=== PATIENT | female | born 1995 | race African-American/Black ===

== ENCOUNTER 2017-07-11 14:11 | Emergency (ER) | payer OTHER ==
[2017-07-11 14:29] VITALS: BP 139/83; PULSE 101; TEMP 98.2; BMI 26.9
[2017-07-11] MEDS ORDERED: ACETAMINOPHEN 325 MG TABLET (FP) ONE (14:56)
[2017-07-11] MEDS ORDERED: ACETAMINOPHEN 325 MG TABLET (FP) PO ONE (14:57)
--- NOTE | 2017-07-11 15:07 | PDOC ---
History of Present Illness - General Chief Complaint: Headache Stated Complaint: HEADACHE Time Seen by Provider: 07/11/17 14:45 History Source: Patient Exam Limitations: No Limitations - History of Present Illness Initial Comments: 07/11/17 15:03 The 21-year-old female who presents to the emergency department with 1 week of headaches, rhinorrhea, nasal congestion. She denies any fevers, sore throats, chest pain, shortness of breath, abdominal pain, nausea, vomiting, diarrhea, dysuria, vaginal discharge or bleeding. Patient is currently 26 weeks gestation. Has appointment with her surveillance manager this week for further evaluation. Past History - Past Medical History Allergies/Adverse Reactions: Allergies Allergy/AdvReac Type Severity Reaction Status Date / Time No Known Allergies Allergy Verified 07/11/17 14:29 Home Medications: Ambulatory Orders Cephalexin Monohydrate [Keflex -] 500 mg PO Q6H #40 capsule 07/11/17 Anemia: Yes (sickle cell trait) COPD: No - Immunization History Immunization Up to Date: (?) - Suicide/Smoking/Psychosocial Hx Smoking History: Never smoked Hx Alcohol Use: No Drug/Substance Use Hx: No Substance Use Type: None Review of Systems - Review of Systems Able to Perform ROS?: Yes Is the patient limited Slovak proficient: No Constitutional: No: Symptoms Reported HEENTM: Yes: See HPI Respiratory: No: Symptoms reported Cardiac (ROS): No: Symptoms Reported ABD/GI: No: Symptoms Reported : No: Symptoms Reported Musculoskeletal: No: Symptoms Reported Integumentary: No: Symptoms Reported Neurological: No: Symptoms reported Endocrine: No: Symptoms Reported Hematologic/Lymphatic: No: Symptoms Reported *Physical Exam - Vital Signs Last Vital Signs Temp Pulse Resp BP Pulse Ox 98.2 F 101 H 20 139/83 99 07/11/17 14:25 07/11/17 14:25 07/11/17 14:25 07/11/17 14:25 07/11/17 14:25 - Physical Exam General Appearance: Yes: Appropriately Dressed. No: Apparent Distress HEENT: positive: Normal ENT Inspection Neck: positive: Trachea midline, Supple Respiratory/Chest: positive: Lungs Clear, Normal Breath Sounds. negative: Respiratory Distress, Accessory Muscle Use Cardiovascular: positive: Regular Rhythm, Regular Rate. negative: Murmur Gastrointestinal/Abdominal: positive: Normal Bowel Sounds, Soft, Other (Fundus palpated 1 cm below umbilicus). negative: Tender Musculoskeletal: positive: Normal Inspection. negative: CVA Tenderness Extremity: positive: Normal Capillary Refill, Normal Inspection Integumentary: positive: Normal Color, Dry, Warm Neurologic: positive: Alert, Normal Response, Motor Strength 5/5 ED Treatment Course - Medications Given in the ED: ED Medications Discontinued Medications Generic Name Dose Route Start Last Admin Trade Name Marianne PRN Reason Stop Dose Admin Acetaminophen 650 mg 07/11/17 14:57 07/11/17 15:02 Tylenol - PO 07/11/17 14:58 650 mg ONCE ONE Administration Medical Decision Making - Medical Decision Making 07/11/17 15:06 A/P: 21-year-old female without significant past medical history is currently 26 weeks gestation with frontal headache and nasal congestion. TMs within normal limits. External auditory canal is clear without erythema or exudates Oropharynx clear without erythema or exudates. No sinus tenderness present Lungs clear to auscultation bilaterally. Cranial nerves II through XII grossly intact. I'll send unable for heart rate of 101. I'll give the patient 6 for 50 mg Tylenol orally now. Urinalysis and urine culture. Discharge home with follow-up with CHILD AND FAMILY THERAPIST later this week as previously scheduled. *DC/Admit/Observation/Transfer Diagnosis at time of Disposition: UTI (urinary tract infection) Qualifiers: Urinary tract infection type: acute cystitis Hematuria presence: without hematuria Qualified Code(s): N30.00 - Acute cystitis without hematuria - Discharge Dispostion Disposition: HOME Condition at time of disposition: Stable Admit: No - Prescriptions Prescriptions: Cephalexin Monohydrate [Keflex -] 500 mg PO Q6H #40 capsule - Referrals - Patient Instructions Printed Discharge Instructions: DI for Urinary Tract Infection (UTI) Additional Instructions: Take Keflex 500 mg 4 times a day until all the medication has been completed. Follow-up with your CHILD AND FAMILY THERAPIST as previously scheduled. Take Tylenol as needed for fever and/or pain. Patient drink plenty of fluids. Return to emergency department for fevers, chills, lower back pain or any other concerns. - Post Discharge Activity
[2017-07-11 15:19] LABS: URINE APPEARANCE CLOUDY; URINE BILIRUBIN NEGATIVE (<2.0 mg/dL); URINE BLOOD NEGATIVE (NEGATIVE); URINE COLOR YELLOW; URINE GLUCOSE (UA) NEGATIVE (NEGATIVE); URINE KETONE NEGATIVE (NEGATIVE); URINE NITRITE NEGATIVE (NEGATIVE); URINE PROTEIN NEGATIVE (NEGATIVE); URINE UROBILINOGEN NEGATIVE mg/dL (0.2-1.0)
[2017-07-11 15:35] LABS: URINE LEUK ESTERASE 2+ (NEGATIVE)
[2017-07-11 15:36] LABS: EPI CELLS RARE /HPF (FEW); URINE BACTERIA MANY /hpf (NONE SEEN); URINE HYALINE CAST 4 /lpf; URINE MUCUS RARE
== END 2017-07-11 15:49 | disposition home or self-care (01) ==
LOC: JERFT 14:11
DX: O26.892 Other specified pregnancy related conditions, second trimester (principal); O23.12 Infections of bladder in pregnancy, second trimester; Z3A.26 26 weeks gestation of pregnancy
CPT/HCPCS: 81003; 81015; 87086; 99281-25

== ENCOUNTER 2018-04-11 10:34 | Emergency (ER) | payer OTHER ==
[2018-04-11 11:03] VITALS: BP 120/56; PULSE 82; TEMP 98.7; BMI 30.2
[2018-04-11] MEDS ORDERED: ACETAMINOPHEN 325 MG TABLET (FP) PO ONE (11:29)
--- NOTE | 2018-04-11 11:33 | PDOC ---
History of Present Illness - General Chief Complaint: Vaginal Bleeding Stated Complaint: CHEST PAIN Time Seen by Provider: 04/11/18 11:28 History Source: Patient - History of Present Illness Timing/Duration: reports: resolved prior to arrival Past History - Past Medical History Allergies/Adverse Reactions: Allergies Allergy/AdvReac Type Severity Reaction Status Date / Time No Known Allergies Allergy Verified 04/11/18 10:56 Home Medications: Ambulatory Orders Cephalexin Monohydrate [Keflex -] 500 mg PO Q6H #40 capsule 07/11/17 Anemia: Yes (sickle cell trait) COPD: No Other medical history: 12 weeks - Immunization History Immunization Up to Date: (?) - Suicide/Smoking/Psychosocial Hx Smoking History: Never smoked Hx Alcohol Use: No Drug/Substance Use Hx: No Substance Use Type: None Review of Systems - Review of Systems Constitutional: No: Fever HEENTM: No: Ear Pain, Throat Pain Respiratory: No: Cough ABD/GI: No: Nausea, Vomiting, Abdominal cramping : No: Dysuria, Hematuria Musculoskeletal: No: Back Pain *Physical Exam - Vital Signs Last Vital Signs Temp Pulse Resp BP Pulse Ox 98.7 F 82 18 120/56 L 99 04/11/18 10:35 04/11/18 10:35 04/11/18 10:35 04/11/18 10:35 04/11/18 10:35 - Physical Exam General Appearance: Yes: Appropriately Dressed. No: Apparent Distress HEENT: positive: Normal Voice Neck: positive: Supple Respiratory/Chest: negative: Respiratory Distress Female Pelvic Exam: positive: other (deferred, no vag bleed currently per pt) Gastrointestinal/Abdominal: negative: Tender Musculoskeletal: negative: CVA Tenderness Integumentary: positive: Dry, Warm Neurologic: positive: Fully Oriented, Alert, Normal Mood/Affect Moderate Sedation - Procedure Monitoring Vital Signs: Procedure Monitoring Vital Signs Temperature 98.7 F 04/11/18 10:35 Pulse Rate 82 04/11/18 10:35 Respiratory Rate 18 04/11/18 10:35 Blood Pressure 120/56 L 04/11/18 10:35 O2 Sat by Pulse Oximetry (%) 99 04/11/18 10:35 ED Treatment Course - RADIOLOGY Radiology Studies Ordered: Category Date Time Status TRANSVAGINAL US PREG [US] Stat Ultrasound 04/11/18 11:30 Ordered Medical Decision Making - Medical Decision Making 04/11/18 11:32 22 yo F, , ~12 weeks by dates, has had care w/ documented IUP, per pt, no issues w/ preg so far, here w/ 1 e/o vaginal spotting this am that has since resolved. No clots, dysuria, abd pain, n/v/f/c. Also reports generalized body aches including LEY x 2 days. No uri sxs See exam 1st trimester bleed S/p documented IUP w/ FHR on multiple US per pt No bleeding currently Stable and well mt w/ unremarkable exam -beta -T&S -UA -US Body aches Possibly viral R/o flu -tylenol 04/11/18 11:50 04/11/18 14:06 Labs unremarkable. +IUP @ 11w 6 d w/ FHR on US. RH +. No additional vag bleed in ED. Stable for dc w/ OB f/u *DC/Admit/Observation/Transfer Diagnosis at time of Disposition: Threatened , Body aches - Discharge Dispostion Disposition: HOME Condition at time of disposition: Good - Referrals - Patient Instructions Printed Discharge Instructions: DI for Threatened Additional Instructions: You labs and US are normal today Please continue to follow with your electricity trading analyst and take tylenol for pain as needed If bleeding reoccurs/worsen, please return to ED - Post Discharge Activity
[2018-04-11] MEDS ORDERED: ACETAMINOPHEN 325 MG TABLET (FP) ONE (11:47)
[2018-04-11 11:58] LABS: URINE APPEARANCE CLEAR; URINE BILIRUBIN NEGATIVE (<2.0 mg/dL); URINE COLOR LTYELLOW; URINE GLUCOSE (UA) NEGATIVE (NEGATIVE); URINE KETONE NEGATIVE (NEGATIVE); URINE LEUK ESTERASE NEGATIVE (NEGATIVE); URINE NITRITE NEGATIVE (NEGATIVE); URINE PROTEIN NEGATIVE (NEGATIVE); URINE UROBILINOGEN NEGATIVE mg/dL (0.2-1.0)
--- NOTE | 2018-04-12 16:28 | EKG ---
Test Reason : Blood Pressure : / mmHG Vent. Rate : 089 BPM Atrial Rate : 089 BPM P-R Int : 136 ms QRS Dur : 082 ms QT Int : 356 ms P-R-T Axes : 041 044 022 degrees QTc Int : 433 ms NORMAL SINUS RHYTHM NORMAL ECG WHEN COMPARED WITH ECG OF 05-DEC-2015 13:17, NO SIGNIFICANT CHANGE WAS FOUND Confirmed by BECCA LÓPEZ MD ([id number]) on 04/12/2018 4:28:06 PM Referred By: Confirmed By:BECCA LÓPEZ MD
== END 2018-04-11 14:54 | disposition home or self-care (01) ==
LOC: JER 10:34
DX: O26.891 Other specified pregnancy related conditions, first trimester (principal); O20.0 Threatened abortion; Z3A.11 11 weeks gestation of pregnancy
CPT/HCPCS: 36415; 76801-TC; 81003; 84702; 86850; 86900; 86901; 87086; 87186; 87804; 93005; 93010; 99281-25

== ENCOUNTER 2018-05-21 16:41 | Emergency (ER) | payer OTHER ==
--- NOTE | 2018-05-21 17:04 | PDOC ---
Rapid Medical Evaluation Time Seen by Provider: 05/21/18 17:01 Medical Evaluation: Allergies Allergy/AdvReac Type Severity Reaction Status Date / Time No Known Allergies Allergy Verified 04/11/18 10:56 05/21/18 17:01 I have performed a brief in-person evaluation of this patient. The patient presents with a chief complaint of:Chest pain and headache started last night Pertinent physical exam findings: NAD I have ordered the following: u preg The patient will proceed to the ED for further evaluation.
[2018-05-21 17:05] VITALS: BP 112/68; PULSE 82; TEMP 98.3; BMI 28.9
[2018-05-21] MEDS ORDERED: ACETAMINOPHEN 325 MG TABLET (FP) PO ONE (17:43)
[2018-05-21] MEDS ORDERED: ACETAMINOPHEN 325 MG TABLET (FP) ONE (17:43)
--- NOTE | 2018-05-21 18:02 | PDOC ---
History of Present Illness - General Chief Complaint: Pain Stated Complaint: CHEST PAIN,HEADACHE Time Seen by Provider: 05/21/18 17:01 History Source: Patient - History of Present Illness Timing/Duration: reports: other Past History - Past Medical History Allergies/Adverse Reactions: Allergies Allergy/AdvReac Type Severity Reaction Status Date / Time No Known Allergies Allergy Verified 05/21/18 17:02 Home Medications: Ambulatory Orders NK [No Known Home Medication] 05/21/18 Anemia: Yes (sickle cell trait) COPD: No - Immunization History Immunization Up to Date: (?) - Suicide/Smoking/Psychosocial Hx Smoking History: Never smoked Hx Alcohol Use: No Drug/Substance Use Hx: No Substance Use Type: None Review of Systems - Review of Systems Constitutional: No: Fever HEENTM: Yes: Ear Pain. No: Throat Pain ABD/GI: No: Nausea, Vomiting *Physical Exam - Vital Signs Last Vital Signs Temp Pulse Resp BP Pulse Ox 98.3 F 82 18 112/68 99 05/21/18 17:03 05/21/18 17:03 05/21/18 17:03 05/21/18 17:03 05/21/18 17:03 - Physical Exam General Appearance: Yes: Appropriately Dressed. No: Apparent Distress HEENT: positive: Normal ENT Inspection, Normal Voice, Pharynx Normal. negative : Scleral Icterus (R), Scleral Icterus (L) Neck: positive: Supple Respiratory/Chest: negative: Respiratory Distress Integumentary: positive: Dry, Warm Neurologic: positive: Fully Oriented, Alert, Normal Mood/Affect Moderate Sedation - Procedure Monitoring Vital Signs: Procedure Monitoring Vital Signs Temperature 98.3 F 05/21/18 17:03 Pulse Rate 82 05/21/18 17:03 Respiratory Rate 18 05/21/18 17:03 Blood Pressure 112/68 05/21/18 17:03 O2 Sat by Pulse Oximetry (%) 99 05/21/18 17:03 ED Treatment Course - ADDITIONAL ORDERS Additional order review: Laboratory Results 05/21/18 17:00 Urine HCG, Qual Negative Medical Decision Making - Medical Decision Making 05/21/18 17:44 22-year-old female, no significant history, here with headache. Patient states a week ago she developed L ear pain and was seen by her PMD who states there was no infection based on her exam. Pain has since radiated to R hinduism with intermittent dizziness. No otorrhea, sore throat, blurry vision, photophobia or nausea, vomiting. Not taking anything for pain per patient See exam LEY No red flags on exam Upreg neg -dc with otc pain meds and pmd f/u 05/21/18 18:03 *DC/Admit/Observation/Transfer Diagnosis at time of Disposition: Headache Qualifiers: Headache type: unspecified Headache chronicity pattern: acute headache Intractability: not intractable Qualified Code(s): R51 - Headache - Discharge Dispostion Disposition: HOME - Referrals Referrals: Ila Cardoso MS [Primary Care Provider] - - Patient Instructions Printed Discharge Instructions: DI for Headache Additional Instructions: Take Motrin or Tylenol for pain as needed and follow-up with your PMD if headache persists - Post Discharge Activity
== END 2018-05-21 17:48 | disposition home or self-care (01) ==
LOC: JER 16:41 → JERFT 16:41
DX: R51 Headache (principal); D57.3 Sickle-cell trait
CPT/HCPCS: 84703; 99281-25

== ENCOUNTER 2019-10-06 17:59 | Emergency (ER) | payer OTHER ==
[2019-10-06 18:03] VITALS: BP 131/71; PULSE 87; TEMP 98.4; BMI 32.3
[2019-10-06] MEDS ORDERED: METHOCARBAMOL 500 MG TABLET PO ONE (19:13)
[2019-10-06] MEDS ORDERED: KETOROLAC TROMETHAMINE 30 MG/1 ML VIAL IM ONE (19:13)
[2019-10-06] MEDS ORDERED: METHOCARBAMOL 500 MG TABLET ONE ×2 (19:14→20:03)
[2019-10-06] MEDS ORDERED: KETOROLAC TROMETHAMINE 30 MG/1 ML VIAL ONE ×2 (19:14→20:03)
== END 2019-10-06 20:07 | disposition home or self-care (01) ==
LOC: JERFT 17:59
PROC: 3E0233Z Introduction of Anti-inflammatory into Muscle, Percutaneous Approach (ICD-10-PCS; principal; 2019-10-06)
DX: M79.605 Pain in left leg (principal); R51 Headache
CPT/HCPCS: 93971-TC; 99284-25

== ENCOUNTER 2020-09-04 10:51 | Emergency (ER) | payer OTHER ==
[2020-09-04 10:56] VITALS: BP 119/73; PULSE 77; TEMP 97.9; BMI 27.8
[2020-09-04 12:20] LABS: BASO % 0.7 % (0-2.0); EOS % 0.4 % (0-4.5); HEMATOCRIT 38.4 % (32.4-45.2); HEMOGLOBIN 12.7 GM/dL (10.7-15.3); LYMPH % 36.2 % (8-40); MCH 26.1 pg (25.7-33.7); MCHC 33.2 g/dl (32.0-36.0); MEAN CELL VOLUME 78.5 fl (80-96); MEAN PLT VOLUME 10.2 fl (7.5-11.1); MONO % 6.8 % (3.8-10.2); NEUT % 55.9 % (42.8-82.8); PLATELET COUNT 193 K/MM3 (134-434); RBC 4.88 M/mm3 (3.60-5.2); RDW 15.3 % (11.6-15.6); WHITE BLOOD COUNT 3.4 K/mm3 (4.0-10.0)
[2020-09-04 12:30] LABS: CHLORIDE 107 mmol/L (98-107); SODIUM 141 mmol/L (136-145)
[2020-09-04 12:32] LABS: ALBUMIN 4.4 g/dl (3.4-5.0); ANION GAP 6 MMOL/L (8-16); BLOOD UREA NITROGEN 7.4 mg/dL (7-18); CALCIUM 9.7 mg/dL (8.5-10.1); CO2 28 mmol/L (21-32); GLUCOSE,RANDOM 83 mg/dL (74-106)
[2020-09-04 12:35] LABS: CREATININE 0.8 mg/dL (0.55-1.3); SGPT/ALT 15 U/L (13-61)
[2020-09-04 12:36] LABS: SGOT/AST 12 U/L (15-37)
[2020-09-04 12:37] LABS: BILIRUBIN,TOTAL 0.4 mg/dL (0.2-1); TOT PROT 7.9 g/dl (6.4-8.2)
[2020-09-04 12:38] LABS: ALK PHOS 80 U/L (45-117)
== END 2020-09-04 13:56 | disposition home or self-care (01) ==
LOC: JER 10:51
DX: R07.9 Chest pain, unspecified (principal)
CPT/HCPCS: 36415; 71046-TC-FY; 80053; 82550; 84484; 85025; 93005; 93010; 99285-25; C9803; U0003; U0005

== ENCOUNTER 2020-11-26 08:20 | Emergency (ER) | payer OTHER ==
[2020-11-26 08:26] VITALS: BMI 26.9
[2020-11-26] MEDS ORDERED: SODIUM CHLORIDE 0.9% 500 ML INFUS.BAG IV ONE (09:08)
[2020-11-26] MEDS ORDERED: ACETAMINOPHEN 1000 MG/100 ML VIAL (NON FORMULARY) IVPB ONE (09:08)
[2020-11-26 09:25] VITALS: PULSE 69
[2020-11-26 09:38] LABS: BASO % 0.4 % (0-2.0); EOS % 0.8 % (0-4.5); HEMATOCRIT 31.6 % (32.4-45.2); HEMOGLOBIN 10.7 GM/dL (10.7-15.3); LYMPH % 52.2 % (8-40); MCH 25.8 pg (25.7-33.7); MCHC 33.9 g/dl (32.0-36.0); MEAN PLT VOLUME 9.8 fl (7.5-11.1); MONO % 12.9 % (3.8-10.2); NEUT % 33.7 % (42.8-82.8); PLATELET COUNT 142 10^3/uL (134-434); RBC 4.16 M/mm3 (3.60-5.2); RDW 15.7 % (11.6-15.6); WHITE BLOOD COUNT 2.3 K/mm3 (4.0-10.0)
[2020-11-26] MEDS ORDERED: ACETAMINOPHEN INJECTION 100 ML IVPB ONE (09:49)
[2020-11-26 09:54] LABS: INR 1.12 (0.83-1.09); PROTHROMBIN TIME (PATIENT) 13.5 SEC (9.7-13.0)
[2020-11-26 09:56] LABS: ACTIVATED PTT 38.6 SECONDS (25.2-36.5)
[2020-11-26 10:05] LABS: CHLORIDE 111 mmol/L (98-107); SODIUM 142 mmol/L (136-145)
[2020-11-26 10:08] LABS: ANION GAP 4 MMOL/L (8-16); BLOOD UREA NITROGEN 8.7 mg/dL (7-18); CO2 27 mmol/L (21-32); GLUCOSE,RANDOM 90 mg/dL (74-106)
[2020-11-26 10:09] LABS: ALBUMIN 3.8 g/dl (3.4-5.0)
[2020-11-26 10:12] LABS: CREATININE 0.9 mg/dL (0.55-1.3); SGOT/AST 15 U/L (15-37); SGPT/ALT 18 U/L (13-61)
[2020-11-26 10:13] LABS: BILIRUBIN,TOTAL 0.3 mg/dL (0.2-1); TOT PROT 6.7 g/dl (6.4-8.2)
[2020-11-26 10:14] LABS: ALK PHOS 59 U/L (45-117)
[2020-11-26 10:48] VITALS: BP 101/71; TEMP 98.5
== END 2020-11-26 15:00 | disposition home or self-care (01) ==
LOC: JER 08:20
PROC: 3E0333Z Introduction of Anti-inflammatory into Peripheral Vein, Percutaneous Approach (ICD-10-PCS; principal; 2020-11-26)
DX: R07.9 Chest pain, unspecified (principal); S09.90XA Unspecified injury of head, initial encounter; G44.89 Other headache syndrome; W22.8XXA Striking against or struck by other objects, initial encounter
CPT/HCPCS: 36415; 70450-TC; 71275-TC; 80053; 82550; 84484; 84703; 85025; 85379; 85610; 85730; 86850; 86900; 86901; 93005; 93010; 93970-TC; 99285-25; J0131; Q9967

== ENCOUNTER 2021-01-10 19:45 | Emergency (ER) | payer OTHER ==
[2021-01-10 20:03] VITALS: BP 142/86; PULSE 75; TEMP 98.1; BMI 26.7
[2021-01-10] MEDS ORDERED: LACTATED RINGERS SOLUTION 1000 ML INFUS.BAG IV ONE (20:51)
[2021-01-10 21:46] LABS: BASO % 0.9 % (0-2.0); EOS % 0.6 % (0-4.5); HEMATOCRIT 34.7 % (32.4-45.2); HEMOGLOBIN 11.5 GM/dL (10.7-15.3); LYMPH % 38.8 % (8-40); MCH 25.5 pg (25.7-33.7); MCHC 33.3 g/dl (32.0-36.0); MEAN CELL VOLUME 76.7 fl (80-96); MEAN PLT VOLUME 10.1 fl (7.5-11.1); MONO % 8.1 % (3.8-10.2); NEUT % 51.6 % (42.8-82.8); PLATELET COUNT 161 10^3/uL (134-434); RBC 4.52 M/mm3 (3.60-5.2); RDW 15.1 % (11.6-15.6); WHITE BLOOD COUNT 4.5 K/mm3 (4.0-10.0)
[2021-01-10 21:48] LABS: INR 1.05 (0.83-1.09); PROTHROMBIN TIME (PATIENT) 12.9 SEC (9.7-13.0)
[2021-01-10 21:50] LABS: ACTIVATED PTT 31.6 SECONDS (25.2-36.5)
[2021-01-10 21:56] LABS: CHLORIDE 108 mmol/L (98-107); SODIUM 140 mmol/L (136-145)
[2021-01-10 21:58] LABS: CALCIUM 9.2 mg/dL (8.5-10.1); EPI CELLS 9 /uL (0-25.1); HYALINE CASTS 0 /uL (0-3.1); PH,URINE 6.5 (5.0-8.0); URINE APPEARANCE CLEAR; URINE BACTERIA 157 /uL (0-1359); URINE BILIRUBIN NEGATIVE (NEGATIVE); URINE COLOR YELLOW; URINE GLUCOSE (UA) NEGATIVE (NEGATIVE); URINE KETONE NEGATIVE (NEGATIVE); URINE LEUK ESTERASE 1+ (NEGATIVE); URINE NITRITE NEGATIVE (NEGATIVE); URINE PROTEIN NEGATIVE (NEGATIVE); URINE RBC 4 /uL (0-23.9); URINE UROBILINOGEN 0.2 mg/dL (0.2-1.0); URINE WBC 29 /uL (0-25.8)
[2021-01-10 21:59] LABS: ALBUMIN 4.2 g/dl (3.4-5.0); ANION GAP 8 MMOL/L (8-16); BLOOD UREA NITROGEN 9.9 mg/dL (7-18); CO2 25 mmol/L (21-32); GLUCOSE,RANDOM 75 mg/dL (74-106); MAGNESIUM 1.8 mg/dL (1.8-2.4)
[2021-01-10 22:02] LABS: CREATININE 0.9 mg/dL (0.55-1.3); SGOT/AST 12 U/L (15-37); SGPT/ALT 19 U/L (13-61)
[2021-01-10 22:03] LABS: BILIRUBIN,TOTAL 0.2 mg/dL (0.2-1)
[2021-01-10 22:05] LABS: ALK PHOS 69 U/L (45-117)
[2021-01-10] MEDS ORDERED: NITROFURANTOIN MACROCRYSTAL 50 MG CAPSULE (FP) PO SCH (22:15)
== END 2021-01-10 23:04 | disposition home or self-care (01) ==
LOC: JER 19:45
DX: R07.9 Chest pain, unspecified (principal); N30.00 Acute cystitis without hematuria
CPT/HCPCS: 36415; 71275-TC; 80053; 81003; 82550; 82553; 83735; 84484; 84703; 85025; 85610; 85730; 87077; 87086; 87110; 87491; 87591; 93005; 93010; 99285-25; C9803; Q9967; U0003; U0005

== ENCOUNTER 2021-01-31 22:44 | Emergency (ER) | payer OTHER ==
[2021-01-31 23:06] VITALS: BP 110/75; PULSE 80; TEMP 97.7; BMI 26.7
[2021-02-01] MEDS ORDERED: ASPIRIN 325 MG ENTERIC COATED TABLET (FP) PO ONE (00:08)
[2021-02-01] MEDS ORDERED: ASPIRIN 81 MG CHEWABLE TABLETS ONE (00:18)
[2021-02-01 00:19] LABS: BASO % 0.9 % (0-2.0); EOS % 0.7 % (0-4.5); HEMATOCRIT 32.3 % (32.4-45.2); HEMOGLOBIN 10.8 GM/dL (10.7-15.3); LYMPH % 54.2 % (8-40); MCH 25.5 pg (25.7-33.7); MCHC 33.5 g/dl (32.0-36.0); MEAN CELL VOLUME 76.1 fl (80-96); MEAN PLT VOLUME 9.4 fl (7.5-11.1); MONO % 9.1 % (3.8-10.2); NEUT % 35.1 % (42.8-82.8); PLATELET COUNT 173 10^3/uL (134-434); RBC 4.24 M/mm3 (3.60-5.2); RDW 15.1 % (11.6-15.6); WHITE BLOOD COUNT 3.8 K/mm3 (4.0-10.0)
[2021-02-01 00:29] LABS: INR 1.19 (0.83-1.09); PROTHROMBIN TIME (PATIENT) 13.4 SEC (9.7-13.0)
[2021-02-01 01:10] LABS: ALBUMIN 3.8 g/dl (3.4-5.0); ALK PHOS 60 U/L (45-117); ANION GAP 3 MMOL/L (8-16); BILIRUBIN,TOTAL 0.2 mg/dL (0.2-1); BLOOD UREA NITROGEN 14.3 mg/dL (7-18); CALCIUM 9.3 mg/dL (8.5-10.1); CHLORIDE 109 mmol/L (98-107); CO2 29 mmol/L (21-32); CREATININE 1.2 mg/dL (0.55-1.3); GLUCOSE,RANDOM 86 mg/dL (74-106); SGOT/AST 15 U/L (15-37); SGPT/ALT 17 U/L (13-61); SODIUM 141 mmol/L (136-145); TOT PROT 7.2 g/dl (6.4-8.2)
== END 2021-02-01 02:02 | disposition home or self-care (01) ==
LOC: JER 22:44
DX: R07.89 Other chest pain (principal)
CPT/HCPCS: 36415; 71046-TC-FY; 80053; 84484; 85025; 85379; 85610; 93005; 93010; 99284-25

== ENCOUNTER 2021-10-28 08:12 | Emergency (ER) | payer OTHER ==
[2021-10-28 08:23] VITALS: BMI 26.1
[2021-10-28 09:54] VITALS: BP 109/77; PULSE 94; TEMP 97.7
[2021-10-28] MEDS ORDERED: SODIUM CHLORIDE 1,000 ML IV STA (11:41)
[2021-10-28 12:34] LABS: BASO % 0.2 % (0-2.0); EOS % 0.4 % (0-4.5); HEMATOCRIT 25.8 % (32.4-45.2); HEMOGLOBIN 8.5 GM/dL (10.7-15.3); LYMPH % 20.3 % (8-40); MCH 22.9 pg (25.7-33.7); MEAN CELL VOLUME 69.4 fl (80-96); MEAN PLT VOLUME 7.7 fl (7.5-11.1); MONO % 6.8 % (3.8-10.2); NEUT % 72.3 % (42.8-82.8); PLATELET COUNT 183 10^3/uL (134-434); RBC 3.72 M/mm3 (3.60-5.2); RDW 15.8 % (11.6-15.6); WHITE BLOOD COUNT 5.1 K/mm3 (4.0-10.0)
[2021-10-28 12:40] LABS: INR 0.97 (0.83-1.09); PROTHROMBIN TIME (PATIENT) 11.1 SEC (9.7-13.0)
[2021-10-28 12:43] LABS: ACTIVATED PTT 27.1 SECONDS (25.2-36.5)
[2021-10-28 12:57] LABS: CHLORIDE 104 mmol/L (98-107); SODIUM 136 mmol/L (136-145)
[2021-10-28 12:59] LABS: CALCIUM 8.9 mg/dL (8.5-10.1)
[2021-10-28 13:00] LABS: ALBUMIN 2.6 g/dl (3.4-5.0); ANION GAP 8 MMOL/L (8-16); BLOOD UREA NITROGEN 4.9 mg/dL (7-18); CO2 24 mmol/L (21-32); GLUCOSE,RANDOM 75 mg/dL (74-106)
[2021-10-28 13:03] LABS: CREATININE 0.6 mg/dL (0.55-1.3); SGOT/AST 12 U/L (15-37); SGPT/ALT 11 U/L (13-61)
[2021-10-28 13:04] LABS: TOT PROT 6.3 g/dl (6.4-8.2)
[2021-10-28 13:05] LABS: ALK PHOS 327 U/L (45-117); BILIRUBIN,TOTAL 0.2 mg/dL (0.2-1)
[2021-10-28 15:28] LABS: URINE APPEARANCE CLEAR; URINE BILIRUBIN NEGATIVE (NEGATIVE); URINE COLOR YELLOW; URINE GLUCOSE (UA) NEGATIVE (NEGATIVE); URINE KETONE NEGATIVE (NEGATIVE); URINE LEUK ESTERASE NEGATIVE (NEGATIVE); URINE NITRITE NEGATIVE (NEGATIVE); URINE PROTEIN NEGATIVE (NEGATIVE)
== END 2021-10-28 16:18 | disposition left against medical advice (07) ==
LOC: JER 08:12
DX: O26.893 Other specified pregnancy related conditions, third trimester (principal); R07.9 Chest pain, unspecified; Z3A.35 35 weeks gestation of pregnancy
CPT/HCPCS: 36415; 71046-TC-FY; 80053; 81003; 82550; 85025; 85610; 85730; 93005; 93010; 99285-25; C9803-CS; U0003; U0005

== ENCOUNTER 2021-11-18 12:55 | Inpatient (IN) | payer OTHER ==
[2021-11-18 14:49] VITALS: BMI 26.4
[2021-11-18 15:20] LABS: CALCIUM 9.1 mg/dL (8.5-10.1)
[2021-11-18 15:21] LABS: BLOOD UREA NITROGEN 7.4 mg/dL (7-18)
[2021-11-18 15:24] LABS: CREATININE 0.7 mg/dL (0.55-1.3)
[2021-11-18] MEDS ORDERED: FENTANYL/BUPIVACAINE/NS/PF - PCEA - 50 ML DISP.SYRIN EP ONE (15:24)
[2021-11-18 15:26] LABS: INR 0.97 (0.83-1.09); PROTHROMBIN TIME (PATIENT) 11.2 SEC (9.7-13.0)
[2021-11-18 15:28] LABS: ACTIVATED PTT 26.8 SECONDS (25.2-36.5)
[2021-11-18] MEDS ORDERED: NALOXONE HCL 0.4 MG/ML VIAL IVPUSH PRN (15:55)
[2021-11-18] MEDS ORDERED: FENTANYL/BUPIVACAINE/NS/PF - PCEA - 50 ML DISP.SYRIN EP SCH (16:00)
[2021-11-18] MEDS ORDERED: OXYTOCIN 20 UNITS in 0.9% NS 20 UNIT/1,000 ML INFUS.BAG IV ONE (18:12)
[2021-11-18 18:19] LABS: COCAINE, UR NEGATIVE (NEGATIVE); METHADONE, UR NEGATIVE (NEGATIVE); OPIATES, URI NEGATIVE (NEGATIVE); URINE AMPHETAMINES NEGATIVE (NEGATIVE); URINE BARBITURATES NEGATIVE (NEGATIVE); URINE BENZODIAZEPINES NEGATIVE (NEGATIVE)
[2021-11-18 18:21] LABS: PHENCYCLIDINE,URINE NEGATIVE (NEGATIVE)
[2021-11-18] MEDS ORDERED: METHYLERGONOVINE MALEATE 0.2 MG/1 ML AMP IM PRN (18:33)
[2021-11-18] MEDS ORDERED: BENZOCAINE 28 GM HEMORRHOIDAL OINTMENT TP PRN (18:33)
[2021-11-18] MEDS ORDERED: BISACODYL 10 MG SUPP.RECT RC PRN (18:33)
[2021-11-18] MEDS ORDERED: BENZOCAINE 20% 57 GM BOTTLE TP PRN (18:33)
[2021-11-18] MEDS ORDERED: WITCH HAZEL 50% (TUCKS) 40 PAD/JAR PAD TP PRN (18:33)
[2021-11-18] MEDS ORDERED: DEXTROSE 5%-LACTATED RINGERS 1,000 ML IV SCH (18:45)
[2021-11-18] MEDS ORDERED: OXYTOCIN 20 UNITS in 0.9% NS 20 UNIT/1,000 ML INFUS.BAG IV SCH (18:45)
[2021-11-19] MEDS: IBUPROFEN 600 MG TABLET (FP) PO PRN ×4 (03:23→21:24)
[2021-11-19] MEDS: ACETAMINOPHEN 325 MG TABLET (FP) PO PRN ×2 (04:04→23:04)
[2021-11-19 09:03] VITALS: RESP 18
[2021-11-19] MEDS: PRENATAL VITAMINS W/ FOLIC ACID TABLET (FP) PO SCH (09:22)
[2021-11-19 09:32] LABS: BASO % 0.3 % (0-2.0); EOS % 0.2 % (0-4.5); HEMATOCRIT 25.3 % (32.4-45.2); HEMOGLOBIN 8.3 GM/dL (10.7-15.3); LYMPH % 17.2 % (8-40); MCH 21.9 pg (25.7-33.7); MEAN CELL VOLUME 66.5 fl (80-96); MEAN PLT VOLUME 8.2 fl (7.5-11.1); MONO % 7.7 % (3.8-10.2); NEUT % 74.6 % (42.8-82.8); PLATELET COUNT 160 10^3/uL (134-434); RDW 16.7 % (11.6-15.6); WHITE BLOOD COUNT 7.4 K/mm3 (4.0-10.0)
[2021-11-19] MEDS ORDERED: SENNOSIDES/DOCUSATE COMBO (SENNA PLUS) TABLET (UD) PO PRN (22:00)
[2021-11-19] MEDS ORDERED: oxyCODONE HCL 5 MG TABLET PO ONE (23:43)
[2021-11-20] MEDS: PRENATAL VITAMINS W/ FOLIC ACID TABLET (FP) PO SCH (09:13)
[2021-11-20] MEDS: IBUPROFEN 600 MG TABLET (FP) PO PRN (09:13)
[2021-11-20 09:47] VITALS: BP 101/66; PULSE 90; TEMP 98
== END 2021-11-20 11:25 | disposition home or self-care (01) | DRG 560 ==
LOC: JLDR 12:55 → J3W 21:09
PROVIDERS: ADMIT Obstetrics & Gynecology; ATTEND Obstetrics & Gynecology
PROC: 10E0XZZ Delivery of Products of Conception, External Approach (ICD-10-PCS; principal; 2021-11-18)
DX: O80 Encounter for full-term uncomplicated delivery (principal); Z3A.38 38 weeks gestation of pregnancy; Z37.0 Single live birth
CPT/HCPCS: 36415; 59409; 80048; 80307; 85025; 85610; 85730; 86780; 86850; 86900; 86901; C9803-CS; U0003; U0005

== ENCOUNTER 2021-11-28 07:28 | Emergency (ER) | payer OTHER ==
[2021-11-28 07:34] VITALS: PULSE 78; RESP 18; TEMP 98.3; BMI 26.1
[2021-11-28] MEDS ORDERED: METOCLOPRAMIDE HCL INJECTION 10 MG/2 ML VIAL IVPUSH ONE (08:37)
[2021-11-28] MEDS ORDERED: ACETAMINOPHEN 1000 MG/100 ML BAG IVPB ONE (08:37)
[2021-11-28] MEDS ORDERED: METOCLOPRAMIDE HCL INJECTION 10 MG/2 ML VIAL ONE (08:46)
[2021-11-28] MEDS ORDERED: ACETAMINOPHEN INJECTION 100 ML IVPB ONE (08:47)
[2021-11-28] MEDS ORDERED: ACETAMINOPHEN 500 MG TABLET (FP) PO ONE (09:04)
[2021-11-28] MEDS ORDERED: ONDANSETRON *ODT* 4 MG TABLET SL ONE (09:12)
[2021-11-28] MEDS ORDERED: ACETAMINOPHEN 325 MG TABLET (FP) ONE (09:14)
[2021-11-28] MEDS ORDERED: ONDANSETRON *ODT* 4 MG TABLET ONE (09:15)
[2021-11-28 09:27] LABS: BASO % 0.6 % (0-2.0); EOS % 0.8 % (0-4.5); HEMATOCRIT 30.8 % (32.4-45.2); HEMOGLOBIN 10.6 GM/dL (10.7-15.3); LYMPH % 34.6 % (8-40); MCH 22.7 pg (25.7-33.7); MCHC 34.3 g/dl (32.0-36.0); MEAN CELL VOLUME 66.2 fl (80-96); MEAN PLT VOLUME 7.8 fl (7.5-11.1); MONO % 7.5 % (3.8-10.2); NEUT % 56.5 % (42.8-82.8); PLATELET COUNT 251 10^3/uL (134-434); RBC 4.65 M/mm3 (3.60-5.2); RDW 17.5 % (11.6-15.6); WHITE BLOOD COUNT 3.9 K/mm3 (4.0-10.0)
[2021-11-28 09:42] LABS: INR 0.97 (0.83-1.09); PROTHROMBIN TIME (PATIENT) 11.2 SEC (9.7-13.0)
[2021-11-28 09:45] LABS: ACTIVATED PTT 28.6 SECONDS (25.2-36.5)
[2021-11-28 09:51] LABS: CALCIUM 9.3 mg/dL (8.5-10.1)
[2021-11-28 09:52] LABS: BLOOD UREA NITROGEN 7.5 mg/dL (7-18); MAGNESIUM 1.9 mg/dL (1.8-2.4)
[2021-11-28 09:55] LABS: CREATININE 0.9 mg/dL (0.55-1.3)
[2021-11-28 09:57] LABS: BILIRUBIN,TOTAL 0.2 mg/dL (0.2-1)
[2021-11-28 10:51] LABS: EPI CELLS 22 /uL (0-25.1); HYALINE CASTS 1 /uL (0-3.1); URINE APPEARANCE CLEAR; URINE BACTERIA 1060 /uL (0-1359); URINE BILIRUBIN NEGATIVE (NEGATIVE); URINE COLOR YELLOW; URINE GLUCOSE (UA) NEGATIVE (NEGATIVE); URINE KETONE NEGATIVE (NEGATIVE); URINE LEUK ESTERASE 3+ (NEGATIVE); URINE NITRITE NEGATIVE (NEGATIVE); URINE PROTEIN NEGATIVE (NEGATIVE); URINE RBC 20 /uL (0-23.9); URINE UROBILINOGEN 0.2 mg/dL (0.2-1.0); URINE WBC 144 /uL (0-25.8)
[2021-11-28 13:50] VITALS: BP 125/74
[2021-11-28 15:35] LABS: URIC ACID 5.5 mg/dL (2.6-7.2)
== END 2021-11-28 14:13 | disposition home or self-care (01) ==
LOC: JER 07:28
DX: R51.9 Headache, unspecified (principal); R07.9 Chest pain, unspecified
CPT/HCPCS: 36415; 70450-TC; 70544-TC; 71275-TC; 80053; 81003; 83615; 83735; 84550; 85025; 85379; 85610; 85730; 86850; 86900; 86901; 87086; 93005; 93010; 99285-25; C9803-CS; Q0162; Q9967; U0003; U0005

== ENCOUNTER 2021-12-10 07:06 | Emergency (ER) | payer OTHER ==
[2021-12-10 07:31] VITALS: BP 114/76; PULSE 82; RESP 18; TEMP 98.2; BMI 26.7
== END 2021-12-10 09:30 | disposition home or self-care (01) ==
LOC: JERFT 07:06 → JER 07:06 → JERFT 09:30
DX: I80.8 Phlebitis and thrombophlebitis of other sites (principal)
CPT/HCPCS: 93971; 99284-25

== ENCOUNTER 2021-12-26 09:10 | Emergency (ER) | payer OTHER ==
[2021-12-26 09:19] VITALS: BP 123/68; PULSE 92; RESP 20; TEMP 97.9; BMI 25.7
[2021-12-26] MEDS ORDERED: ACETAMINOPHEN 1000 MG/100 ML BAG IVPB ONE (10:19)
[2021-12-26] MEDS ORDERED: METOCLOPRAMIDE HCL INJECTION 10 MG/2 ML VIAL IVPUSH ONE (10:19)
[2021-12-26] MEDS ORDERED: ACETAMINOPHEN INJECTION 100 ML IVPB ONE (12:15)
[2021-12-26] MEDS ORDERED: METOCLOPRAMIDE HCL INJECTION 10 MG/2 ML VIAL ONE (12:15)
[2021-12-26 12:55] LABS: ALBUMIN 3.4 g/dl (3.4-5.0); BLOOD UREA NITROGEN 8.1 mg/dL (7-18); CALCIUM 9.1 mg/dL (8.5-10.1)
[2021-12-26 12:58] LABS: CREATININE 0.9 mg/dL (0.55-1.3)
[2021-12-26 13:00] LABS: BILIRUBIN,TOTAL 0.3 mg/dL (0.2-1); TOT PROT 6.7 g/dl (6.4-8.2)
[2021-12-26 13:08] LABS: BASO % 0.6 % (0-2.0); EOS % 0.6 % (0-4.5); HEMOGLOBIN 10.6 GM/dL (10.7-15.3); LYMPH % 46.1 % (8-40); MCH 21.9 pg (25.7-33.7); MEAN CELL VOLUME 68.4 fl (80-96); MEAN PLT VOLUME 9.9 fl (7.5-11.1); MONO % 8.9 % (3.8-10.2); NEUT % 43.8 % (42.8-82.8); PLATELET COUNT 171 10^3/uL (134-434); RBC 4.83 M/mm3 (3.60-5.2); RDW 20.6 % (11.6-15.6); WHITE BLOOD COUNT 2.7 K/mm3 (4.0-10.0)
[2021-12-26 14:16] LABS: ANISOCYTOSIS 1+; MACROCYTOSIS 0; OVALOCYTE 1+
[2021-12-26 15:55] LABS: URINE APPEARANCE CLEAR; URINE BILIRUBIN NEGATIVE (NEGATIVE); URINE COLOR YELLOW; URINE GLUCOSE (UA) NEGATIVE (NEGATIVE); URINE KETONE NEGATIVE (NEGATIVE); URINE LEUK ESTERASE NEGATIVE (NEGATIVE); URINE NITRITE NEGATIVE (NEGATIVE); URINE PROTEIN NEGATIVE (NEGATIVE); URINE UROBILINOGEN 0.2 mg/dL (0.2-1.0)
== END 2021-12-26 16:34 | disposition home or self-care (01) ==
LOC: JER 09:10
DX: R06.02 Shortness of breath (principal); G44.89 Other headache syndrome
CPT/HCPCS: 36415; 71275-TC; 80053; 81003; 84703; 85025; 87086; 99285-25; Q9967

== ENCOUNTER 2022-01-28 09:30 | Emergency (ER) | payer OTHER ==
[2022-01-28 09:34] VITALS: BP 109/68; PULSE 88; RESP 16; TEMP 98; BMI 25.7
[2022-01-28] MEDS ORDERED: MAG HYDROX/AL HYDROX/SIMETH 30 ML UNIT-DOSE CUP PO ONE (09:47)
[2022-01-28] MEDS ORDERED: FAMOTIDINE 20 MG TABLET PO ONE (09:47)
[2022-01-28] MEDS ORDERED: FAMOTIDINE 20 MG TABLET ONE (09:59)
[2022-01-28] MEDS ORDERED: MAG HYDROX/AL HYDROX/SIMETH 30 ML UNIT-DOSE CUP ONE (09:59)
[2022-01-28 10:27] LABS: BASO % 0.7 % (0-2.0); EOS % 0.5 % (0-4.5); HEMATOCRIT 32.3 % (32.4-45.2); HEMOGLOBIN 10.5 GM/dL (10.7-15.3); LYMPH % 42.1 % (8-40); MCH 22.8 pg (25.7-33.7); MCHC 32.6 g/dl (32.0-36.0); MEAN PLT VOLUME 8.8 fl (7.5-11.1); MONO % 8.6 % (3.8-10.2); NEUT % 48.1 % (42.8-82.8); PLATELET COUNT 201 10^3/uL (134-434); RBC 4.61 M/mm3 (3.60-5.2); RDW 21.8 % (11.6-15.6); WHITE BLOOD COUNT 3.4 K/mm3 (4.0-10.0)
[2022-01-28 10:34] LABS: INR 1.02 (0.83-1.09); PROTHROMBIN TIME (PATIENT) 11.7 SEC (9.7-13.0)
[2022-01-28 10:37] LABS: ACTIVATED PTT 29.7 SECONDS (25.2-36.5)
[2022-01-28 10:52] LABS: ALBUMIN 3.8 g/dl (3.4-5.0); CALCIUM 9.3 mg/dL (8.5-10.1)
[2022-01-28 10:53] LABS: BLOOD UREA NITROGEN 6.8 mg/dL (7-18)
[2022-01-28 10:54] LABS: ANISOCYTOSIS 2+; MACROCYTOSIS 0; OVALOCYTE 1+
[2022-01-28 10:57] LABS: BILIRUBIN,TOTAL 0.3 mg/dL (0.2-1)
== END 2022-01-28 11:40 | disposition home or self-care (01) ==
LOC: JER 09:30
DX: R10.13 Epigastric pain (principal)
CPT/HCPCS: 36415; 80053; 83690; 85025; 85610; 85730; 93005; 93010; 99284-25

== ENCOUNTER 2022-03-05 07:25 | Emergency (ER) | payer OTHER ==
[2022-03-05 07:42] VITALS: BP 114/76; PULSE 72; RESP 18; TEMP 98.2; BMI 26.1
[2022-03-05 08:33] LABS: BASO % 0.4 % (0-2.0); EOS % 0.6 % (0-4.5); HEMATOCRIT 31.2 % (32.4-45.2); HEMOGLOBIN 10.2 GM/dL (10.7-15.3); LYMPH % 34.1 % (8-40); MCH 23.3 pg (25.7-33.7); MCHC 32.7 g/dl (32.0-36.0); MEAN CELL VOLUME 71.5 fl (80-96); MEAN PLT VOLUME 9.1 fl (7.5-11.1); MONO % 6.2 % (3.8-10.2); NEUT % 58.7 % (42.8-82.8); PLATELET COUNT 234 10^3/uL (134-434); RBC 4.37 M/mm3 (3.60-5.2); RDW 16.4 % (11.6-15.6); WHITE BLOOD COUNT 3.1 K/mm3 (4.0-10.0)
[2022-03-05 09:00] LABS: CALCIUM 9.4 mg/dL (8.5-10.1)
[2022-03-05 09:01] LABS: ALBUMIN 3.7 g/dl (3.4-5.0); BLOOD UREA NITROGEN 9.1 mg/dL (7-18); MAGNESIUM 1.9 mg/dL (1.8-2.4)
[2022-03-05 09:06] LABS: BILIRUBIN,TOTAL 0.3 mg/dL (0.2-1)
== END 2022-03-05 14:52 | disposition home or self-care (01) ==
LOC: JER 07:25
DX: O26.891 Other specified pregnancy related conditions, first trimester (principal); R07.9 Chest pain, unspecified; M79.662 Pain in left lower leg; Z3A.01 Less than 8 weeks gestation of pregnancy
CPT/HCPCS: 36415; 71275-TC; 80053; 83735; 84484; 84702; 84703; 85025; 85379; 93005; 93010; 93970-TC; 99285-25; Q9967